=== PATIENT | female | born 2000 | race Caucasian/White ===

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

== ENCOUNTER 2021-02-10 23:15 | Emergency (ER) | payer OTHER ==
[2021-02-10 23:37] VITALS: BP 143/90; PULSE 81; TEMP 98.2
[2021-02-11] MEDS ORDERED: prednisoLONE ORAL SOLUTION 15MG/5ML CUP PO STA (00:08)
[2021-02-11] MEDS ORDERED: diphenhydrAMINE ELIXIR 25 MG/10 ML CUP PO STA (00:09)
--- NOTE | 2021-02-11 00:12 | ED ---
Allergic Reaction HPI - General Chief complaint: Allergic Reaction Stated complaint: Allergic Reaction Time Seen by Provider: 02/10/21 23:46 Source: patient, family Mode of arrival: ambulatory Limitations: no limitations - History of Present Illness Initial Comments: 21 year-old female patient presents to the emergency department for evaluation of various insect bites. States she stayed in a new house last night and woke up with bites over her arms and neck. States the lesions are extremely itchy. She denies any pain or drainage from the areas. She denies any fever or chills. Did take a claritin without relief. Denies any lip, tongue, or throat swelling. - Related Data Home Medications Medication Instructions Recorded Confirmed Lisdexamfetamine Dimesylate 70 mg PO QAM 01/26/15 01/26/15 [Vyvanse] Previous Rx's Medication Instructions Recorded diphenhydrAMINE ELIXIR [Benadryl 25 mg PO Q6H PRN #200 ml 02/11/21 Elixir] prednisoLONE [prednisoLONE Oral 50 mg PO DAILY #50 ml 02/11/21 Soln] Allergies Allergy/AdvReac Type Severity Reaction Status Date / Time No Known Allergies Allergy Verified 02/10/21 23:37 Review of Systems ROS Statement: Those systems with pertinent positive or pertinent negative responses have been documented in the HPI. ROS Other: All systems not noted in ROS Statement are negative. Past Medical History Past Medical History: Hyperlipidemia History of Any Multi-Drug Resistant Organisms: None Reported Past Surgical History: No Surgical Hx Reported Past Psychological History: No Psychological Hx Reported, ADD/ADHD Smoking Status: Current every day smoker Past Alcohol Use History: None Reported Past Drug Use History: None Reported General Exam Limitations: no limitations General appearance: alert, in no apparent distress, other (Physical well- developed, well-nourished adult female patient in no acute distress. ) Eye exam: Present: normal appearance, PERRL, EOMI. Absent: scleral icterus, conjunctival injection, periorbital swelling ENT exam: Present: normal exam, normal oropharynx, mucous membranes moist Respiratory exam: Present: normal lung sounds bilaterally. Absent: respiratory distress, wheezes, rales, rhonchi, stridor Cardiovascular Exam: Present: regular rate, normal rhythm, normal heart sounds. Absent: systolic murmur, diastolic murmur, rubs, gallop, clicks Neurological exam: Present: alert, oriented X3, CN II-XII intact Psychiatric exam: Present: normal affect, normal mood Skin exam: Present: warm, dry, intact, normal color, rash (There are scattered erythematous lesions with mild swelling surrounding erythema consistent with bug bite.) Course Vital Signs 02/10/21 02/11/21 23:31 00:00 Temperature 98.2 F Pulse Rate 81 Respiratory 20 18 Rate Blood Pressure 143/90 O2 Sat by Pulse 99 Oximetry Medical Decision Making - Medical Decision Making 21-year-old female patient presents for evaluation of multiple bug bites over her arms and neck. Physical examination did reveal erythematous lesions consistent with bug bite. She has no lip, tongue, or throat swelling. She was given oral steroid and Benadryl here. She'll be discharged with prescriptions for both. Instructed to follow-up with the primary care physician as needed. Return parameters discussed in detail. She verbalizes understanding and agrees with this plan. My attending is Dr. Land. Disposition Clinical Impression: Bug bites Disposition: HOME SELF-CARE Condition: Good Instructions (If sedation given, give patient instructions): Insect Bite or St ing (ED) Additional Instructions: Take medications as directed. Follow-up with the primary care physician for recheck in 1-2 days. Return for any new, worsening, or concerning symptoms. Prescriptions: diphenhydrAMINE ELIXIR [Benadryl Elixir] 25 mg PO Q6H PRN #200 ml PRN Reason: Itching prednisoLONE [prednisoLONE Oral Soln] 50 mg PO DAILY #50 ml Is patient prescribed a controlled substance at d/c from ED?: No Referrals: Felice Batres DO [Primary Care Provider] - 1-2 days Time of Disposition: 00:12
[2021-02-11 00:25] VITALS: RESP 18
== END 2021-02-11 00:26 | disposition home or self-care (01) ==
LOC: EC 23:15
DX: S10.86XA Insect bite of other specified part of neck, initial encounter (principal); S60.562A Insect bite (nonvenomous) of left hand, initial encounter; S60.561A Insect bite (nonvenomous) of right hand, initial encounter; E78.5 Hyperlipidemia, unspecified; F90.9 Attention-deficit hyperactivity disorder, unspecified type; F17.200 Nicotine dependence, unspecified, uncomplicated; W57.XXXA Bitten or stung by nonvenomous insect and other nonvenomous arthropods, initial encounter
CPT/HCPCS: 99281

== ENCOUNTER 2021-04-21 10:42 | Emergency (ER) | payer OTHER ==
[2021-04-21 11:24] VITALS: RESP 18; TEMP 97
[2021-04-21] MEDS ORDERED: methylPREDNISolone SOD SUCCI 125 MG/2 ML VIAL IM ONE (12:17)
[2021-04-21] MEDS ORDERED: hydrOXYzine HCL 25 MG TAB PO STA (12:17)
[2021-04-21] MEDS ORDERED: diphenhydrAMINE ELIXIR 25 MG/10 ML CUP PO STA (12:20)
--- NOTE | 2021-04-21 12:22 | ED ---
General Adult HPI - General Source: patient, RN notes reviewed Mode of arrival: ambulatory Limitations: no limitations <Jamir Hong - Last Filed: 04/21/21 12:17> <Shauna Murillo - Last Filed: 04/21/21 23:14> - General Chief complaint: Skin/Abscess/Foreign Body Stated complaint: Bed Bugs Time Seen by Provider: 04/21/21 11:27 - History of Present Illness Initial comments: 21-year-old female with a past medical history of hyperlipidemia presents to the emergency room for a chief complaint of rash. Patient states that she feels as if she has bedbug bites. Patient states she used to live with her mother who had bedbugs. States that she would get bitten she would have reactions to the bites that him into welts. Patient states she moved out but spent the night last night at her mom's because she thought they were gone but ended up with welts again.Patient has no other complaints at this time including shortness of breath, chest pain, abdominal pain, nausea or vomiting, headache, or visual changes. (Jamir Hong) - Related Data Home Medications Medication Instructions Recorded Confirmed Lisdexamfetamine Dimesylate 70 mg PO QAM 01/26/15 01/26/15 [Vyvanse] Previous Rx's Medication Instructions Recorded diphenhydrAMINE ELIXIR [Benadryl 25 mg PO Q6H PRN #200 ml 02/11/21 Elixir] prednisoLONE [prednisoLONE Oral 50 mg PO DAILY #50 ml 02/11/21 Soln] diphenhydrAMINE ELIXIR [Benadryl 25 mg PO Q6H PRN #120 ml 04/21/21 Elixir] prednisoLONE ORAL 15MG/5ML DORA 30 mg PO DAILY 4 Days #40 ml 04/21/21 [Prelone] Allergies Allergy/AdvReac Type Severity Reaction Status Date / Time No Known Allergies Allergy Verified 02/10/21 23:37 Review of Systems ROS Other: All systems not noted in ROS Statement are negative. <Jamir Hong - Last Filed: 04/21/21 12:17> ROS Other: All systems not noted in ROS Statement are negative. <Shauna Murillo - Last Filed: 04/21/21 23:14> ROS Statement: Those systems with pertinent positive or pertinent negative responses have been documented in the HPI. Past Medical History Past Medical History: Hyperlipidemia History of Any Multi-Drug Resistant Organisms: None Reported Past Surgical History: No Surgical Hx Reported Past Psychological History: No Psychological Hx Reported Smoking Status: Never smoker Past Alcohol Use History: Rare Past Drug Use History: Marijuana <Jamir Hong - Last Filed: 04/21/21 12:17> General Exam Limitations: no limitations General appearance: alert, in no apparent distress Head exam: Present: atraumatic Eye exam: Present: normal appearance, PERRL, EOMI. Absent: scleral icterus, conjunctival injection ENT exam: Present: normal exam, mucous membranes moist Neck exam: Present: normal inspection, full ROM. Absent: tenderness Respiratory exam: Present: normal lung sounds bilaterally. Absent: respiratory distress, wheezes Cardiovascular Exam: Present: regular rate, normal rhythm, normal heart sounds Skin exam: Present: rash (Patient has multiple raised erythematous plaques on the right upper arm and right side chest. No abscess.) <Jamir Hong - Last Filed: 04/21/21 12:17> Course Vital Signs 04/21/21 04/21/21 11:19 12:46 Temperature 97.0 F L 97.0 F L Pulse Rate 63 71 Respiratory 18 18 Rate Blood Pressure 135/83 136/98 O2 Sat by Pulse 99 96 Oximetry Medical Decision Making <Jamir Hong - Last Filed: 04/21/21 12:17> <Shauna Murillo - Last Filed: 04/21/21 23:14> - Medical Decision Making Patient appears to have reaction to bites. There is no evidence for cellulitis or abscess at this time. Patient will be started on steroid and Benadryl. Requests only liquids as she cannot take pills. She will follow-up with her doctor. She will return here for any worsening symptoms. (Jamir Hong) I was available for consultation in the emergency department. The history and physical exam were done by the midlevel provider. I was consulted for this patients care. I reviewed the case with the midlevel provider and based on their presentation of the patient, I agree with the assessment, medical decision making and plan of care as documented. Chart was dictated using [employer] dictation software. Attempts were made to correct any dictation errors however some typographical errors may persist. Patient was seen during a national state of emergency due to the Covid-19 pandemic. (Shauna Murillo) Disposition Is patient prescribed a controlled substance at d/c from ED?: No Time of Disposition: 12:20 <Jamir Hong - Last Filed: 04/21/21 12:17> <Shauna Murillo - Last Filed: 04/21/21 23:14> Clinical Impression: Rash, Contact dermatitis Disposition: HOME SELF-CARE Condition: Good Instructions (If sedation given, give patient instructions): Urticaria (ED), Acute Rash (ED) Additional Instructions: Take medications as directed. Benadryl may make you drowsy. Follow-up with your doctor. Return to the emergency room for any worsening symptoms such as fevers or spreading redness. Prescriptions: diphenhydrAMINE ELIXIR [Benadryl Elixir] 25 mg PO Q6H PRN #120 ml PRN Reason: Itching prednisoLONE ORAL 15MG/5ML DORA [Prelone] 30 mg PO DAILY 4 Days #40 ml Referrals: Felice Batres DO [Primary Care Provider] - 1-2 days
[2021-04-21 12:48] VITALS: BP 136/98; PULSE 71
== END 2021-04-21 12:46 | disposition home or self-care (01) ==
LOC: EC 10:42
DX: L25.9 Unspecified contact dermatitis, unspecified cause (principal); E78.5 Hyperlipidemia, unspecified; F12.90 Cannabis use, unspecified, uncomplicated
CPT/HCPCS: 99282; 96372; J2930

== ENCOUNTER 2022-04-18 13:11 | Emergency (ER) | payer OTHER ==
--- NOTE | 2022-04-18 14:05 | ED ---
General Adult HPI - General Source: patient, RN notes reviewed Mode of arrival: ambulatory Limitations: no limitations <Ba Bean - Last Filed: 04/18/22 14:03> <Glenda Ayala - Last Filed: 04/18/22 23:27> - General Stated complaint: Abd Pain,Nausea,Headache Time Seen by Provider: 04/18/22 13:52 - History of Present Illness Initial comments: This a 22-year-old female presents emergency Department with chief complaint of abdominal pain, nausea vomiting. Patient states she started having abdominal pain yesterday she states it worsen after she drank alcohol last night. Patient does admit that she continues to have nausea and pain on the right side of her abdomen. Patient states her mental cycle was approximately one month ago but states that she did take a test which was negative yesterday. She has no dysuria no urinary frequency or hematuria noted patient denies any change in bowel habits including melena, hematochezia, constipation. Patient had no prior abdominal surgeries. (Ba Bean) - Related Data Home Medications Medication Instructions Recorded Confirmed No Known Home Medications 04/18/22 04/18/22 Allergies Allergy/AdvReac Type Severity Reaction Status Date / Time No Known Allergies Allergy Verified 04/18/22 20:11 Review of Systems ROS Other: All systems not noted in ROS Statement are negative. <Ba Bean - Last Filed: 04/18/22 14:03> ROS Other: All systems not noted in ROS Statement are negative. <Glenda Ayala - Last Filed: 04/18/22 23:27> ROS Statement: Those systems with pertinent positive or pertinent negative responses have been documented in the HPI. Past Medical History Past Medical History: Hyperlipidemia History of Any Multi-Drug Resistant Organisms: None Reported Past Surgical History: No Surgical Hx Reported Past Psychological History: No Psychological Hx Reported Smoking Status: Never smoker Past Alcohol Use History: Rare Past Drug Use History: Marijuana <Ba Bean - Last Filed: 04/18/22 14:03> Course Vital Signs 04/18/22 04/18/22 14:56 20:59 Temperature 98.5 F Pulse Rate 105 H 98 Respiratory 18 16 Rate Blood Pressure 119/61 126/72 O2 Sat by Pulse 99 98 Oximetry Medical Decision Making - Lab Data Result diagrams: 04/18/22 15:11 04/18/22 15:11 <Glenda Ayala - Last Filed: 04/18/22 23:27> - Medical Decision Making Was pt. sent in by a medical professional or institution? @ Self Did you speak to anyone other than the patient for history? @ -Patient Did you review nursing and triage notes? @ -I reviewed the triage and quick note Were old charts reviewed? @ -NA Differential Diagnosis? @ -Appendicitis, ectopic EKG interpreted by me (3pts min.)? @ -[none] X-rays interpreted by me (1pt min.)? @ -NA CT interpreted by me (1pt min.)? @ -no evidence of acute abdominal process U/S interpreted by me (1pt. min.)? @ -NA What testing was considered but not performed? (CT, X-rays, U/S, labs)? Why? @ NA What meds were considered but not given? Why? @ -Zofran, patient says she cannot take pills orally. Did you discuss the management of the patient with other professionals? @ -I discussed the case with Dr. Trotter who agrees with plan for discharge. Did you reconcile home meds? @ -NA Was smoking cessation discussed for >3mins.? @ -NA Was critical care preformed (if so, how long)? @ -none Were there social determinants of health that impacted care today? How? (Homelessness, low income, unemployed, alcoholism, drug addiction, transportation, low edu. Level, literacy, decrease access to med. care, half-way, rehab)? @ -NA Was there de-escalation of care discussed even if they declined? (Discuss DNR or withdrawal of care, Hospice)? @ -NA What co-morbidities impacted this encounter? (DM, HTN, Smoking, COPD, CAD, Cancer, CVA, Hep., AIDS, mental health diagnosis, sleep apnea, morbid obesity)? @ -NA Was patient admitted / discharged? @ -discharged in stable condition with recommend close follow up with primary care provider Undiagnosed new problem with uncertain prognosis? @ Acute non-specific abdominal pain Drug Therapy requiring intensive monitoring for toxicity (Heparin, Nitro, Insulin, Cardizem)? @ -NA Were any procedures done? @ -NA Diagnosis/symptom? @ Acute non-specific abdominal pain Acute, or Chronic, or Acute on Chronic? @ -Acute Uncomplicated (without systemic symptoms) or Complicated (systemic symptoms)? @ -uncomplicated Side effects of treatment? @ -Na Exacerbation, Progression, or Severe Exacerbation] @ -NA Poses a threat to life or bodily function? @ -low likelihood (Glenda Ayala) - Lab Data Lab Results 04/18/22 04/18/22 04/18/22 Range/Units 15:11 15:11 16:30 WBC 8.4 (3.8-10.6) k/uL RBC 4.86 (3.80-5.40) m/uL Hgb 15.4 (11.4-16.0) gm/dL Hct 44.6 (34.0-46.0) % MCV 91.7 (80.0-100.0) fL MCH 31.6 (25.0-35.0) pg MCHC 34.5 (31.0-37.0) g/dL RDW 11.7 (11.5-15.5) % Plt Count 360 (150-450) k/uL MPV 7.5 Neutrophils % 79 % Lymphocytes % 16 % Monocytes % 3 % Eosinophils % 1 % Basophils % 1 % Neutrophils # 6.7 (1.3-7.7) k/uL Lymphocytes # 1.3 (1.0-4.8) k/uL Monocytes # 0.2 (0-1.0) k/uL Eosinophils # 0.1 (0-0.7) k/uL Basophils # 0.1 (0-0.2) k/uL Sodium 141 (137-145) mmol/L Potassium 4.2 (3.5-5.1) mmol/L Chloride 109 H (98-107) mmol/L Carbon Dioxide 23 (22-30) mmol/L Anion Gap 9 mmol/L BUN 7 (7-17) mg/dL Creatinine 0.62 (0.52-1.04) mg/dL Est GFR (CKD-EPI)AfAm >90 (>60 ml/min/1.73 sqM) Est GFR (CKD-EPI)NonAf >90 (>60 ml/min/1.73 sqM) Glucose 89 (74-99) mg/dL Calcium 10.0 (8.4-10.2) mg/dL Total Bilirubin 1.5 H (0.2-1.3) mg/dL AST 28 (14-36) U/L ALT 30 (4-34) U/L Alkaline Phosphatase 94 (38-126) U/L Total Protein 8.7 H (6.3-8.2) g/dL Albumin 5.0 (3.5-5.0) g/dL Amylase 82 (30-110) U/L Lipase 44 (23-300) U/L Urine Color Yellow Urine Appearance Cloudy H (Clear) Urine pH 6.0 (5.0-8.0) Ur Specific [place] 1.033 (1.001-1.035) Urine Protein 1+ H (Negative) Urine Glucose (UA) Negative (Negative) Urine Ketones 2+ H (Negative) Urine Blood Negative (Negative) Urine Nitrite Negative (Negative) Urine Bilirubin Negative (Negative) Urine Urobilinogen 3.0 (<2.0) mg/dL Ur Leukocyte Esterase Moderate H (Negative) Urine RBC 7 H (0-5) /hpf Urine WBC 7 H (0-5) /hpf Ur Squamous Epith Cells 9 H (0-4) /hpf Urine Bacteria Few H (None) /hpf Urine Mucus Many H (None) /hpf Urine HCG, Qual (Not Detectd) 04/18/22 Range/Units 16:30 WBC (3.8-10.6) k/uL RBC (3.80-5.40) m/uL Hgb (11.4-16.0) gm/dL Hct (34.0-46.0) % MCV (80.0-100.0) fL MCH (25.0-35.0) pg MCHC (31.0-37.0) g/dL RDW (11.5-15.5) % Plt Count (150-450) k/uL MPV Neutrophils % % Lymphocytes % % Monocytes % % Eosinophils % % Basophils % % Neutrophils # (1.3-7.7) k/uL Lymphocytes # (1.0-4.8) k/uL Monocytes # (0-1.0) k/uL Eosinophils # (0-0.7) k/uL Basophils # (0-0.2) k/uL Sodium (137-145) mmol/L Potassium (3.5-5.1) mmol/L Chloride (98-107) mmol/L Carbon Dioxide (22-30) mmol/L Anion Gap mmol/L BUN (7-17) mg/dL Creatinine (0.52-1.04) mg/dL Est GFR (CKD-EPI)AfAm (>60 ml/min/1.73 sqM) Est GFR (CKD-EPI)NonAf (>60 ml/min/1.73 sqM) Glucose (74-99) mg/dL Calcium (8.4-10.2) mg/dL Total Bilirubin (0.2-1.3) mg/dL AST (14-36) U/L ALT (4-34) U/L Alkaline Phosphatase (38-126) U/L Total Protein (6.3-8.2) g/dL Albumin (3.5-5.0) g/dL Amylase (30-110) U/L Lipase (23-300) U/L Urine Color Urine Appearance (Clear) Urine pH (5.0-8.0) Ur Specific [place] (1.001-1.035) Urine Protein (Negative) Urine Glucose (UA) (Negative) Urine Ketones (Negative) Urine Blood (Negative) Urine Nitrite (Negative) Urine Bilirubin (Negative) Urine Urobilinogen (<2.0) mg/dL Ur Leukocyte Esterase (Negative) Urine RBC (0-5) /hpf Urine WBC (0-5) /hpf Ur Squamous Epith Cells (0-4) /hpf Urine Bacteria (None) /hpf Urine Mucus (None) /hpf Urine HCG, Qual Not Detected (Not Detectd) Disposition <Ba Bean - Last Filed: 04/18/22 14:03> Is patient prescribed a controlled substance at d/c from ED?: No Time of Disposition: 20:41 <Glenda Ayala - Last Filed: 04/18/22 23:27> Clinical Impression: Abdominal pain Disposition: HOME SELF-CARE Condition: Stable Instructions (If sedation given, give patient instructions): Abdominal Pain (ED) Additional Instructions: Reason return to the nearest emergency department if symptoms of worsening abdominal pain, diarrhea or fever develops Referrals: None,Stated [Primary Care Provider] - 1-2 days
[2022-04-18 14:58] VITALS: TEMP 98.5
[2022-04-18 15:18] LABS: Basophils # (A) 0.1 k/uL (0-0.2); Basophils % (A) 1 %; Eosinophils # (A) 0.1 k/uL (0-0.7); Eosinophils % (A) 1 %; HCT 44.6 % (34.0-46.0); HGB 15.4 gm/dL (11.4-16.0); Lymphocytes # (A) 1.3 k/uL (1.0-4.8); Lymphocytes % (A) 16 %; MCH 31.6 pg (25.0-35.0); MCHC 34.5 g/dL (31.0-37.0); MCV 91.7 fL (80.0-100.0); Mean Platelet Volume 7.5; Monocytes # (A) 0.2 k/uL (0-1.0); Monocytes % (A) 3 %; Neutrophils # (A) 6.7 k/uL (1.3-7.7); Neutrophils % (A) 79 %; Platelet Count 360 k/uL (150-450); RBC 4.86 m/uL (3.80-5.40); RDW 11.7 % (11.5-15.5); WBC 8.4 k/uL (3.8-10.6)
[2022-04-18 15:27] LABS: ALT 30 U/L (4-34); AST 28 U/L (14-36); African American GFR (CKD) >90 (>60 ml/min/1.73 sqM); Alkaline Phosphatase 94 U/L (38-126); Amylase 82 U/L (30-110); Anion Gap 9 mmol/L; Blood Urea Nitrogen 7 mg/dL (7-17); Carbon Dioxide 23 mmol/L (22-30); Chloride 109 mmol/L (98-107); Glucose 89 mg/dL (74-99); Lipase 44 U/L (23-300); Non-African American GFR(CKD) >90 (>60 ml/min/1.73 sqM); Potassium 4.2 mmol/L (3.5-5.1); Sodium 141 mmol/L (137-145); Total Bilirubin 1.5 mg/dL (0.2-1.3); Total Protein 8.7 g/dL (6.3-8.2)
[2022-04-18 16:47] LABS: Appearance,Urine Cloudy (Clear); Bacteria,Urine Few /hpf; Bilirubin,Urine Negative (Negative); Blood,Urine Negative (Negative); Color,Urine Yellow; Glucose,Urine (UA) Negative (Negative); Ketones,Urine 2+ (Negative); Leukocyte Esterase,Urine Moderate (Negative); Mucus,Urine Many /hpf; Nitrite,Urine Negative (Negative); Protein,Urine 1+ (Negative); RBC,Urine 7 /hpf (0-5); Specific Gravity,Urine 1.033 (1.001-1.035); Squamous Epithelial Cell,Urine 9 /hpf (0-4); WBC,Urine 7 /hpf (0-5)
--- NOTE | 2022-04-18 20:11 | CT ---
EXAMINATION TYPE: CT abdomen pelvis wo con CT DLP: 1093.4 mGycm, Automated exposure control for dose reduction was used. DATE OF EXAM: 04/18/2022 7:56 PM COMPARISON: CT abdomen pelvis most recent from CLINICAL INDICATION:Female, 22 years old with history of RLQ pain; TECHNIQUE: Axial CT of the abdomen and pelvis. Sagittal and coronal reformats were created on a [employer] workstation. Contrast used: None Oral contrast used: without Oral Contrast FINDINGS: LOWER CHEST: Unremarkable ABDOMEN LIVER: Unremarkable GALLBLADDER AND BILE DUCTS: Unremarkable. PANCREAS: Unremarkable. SPLEEN: Unremarkable. ADRENAL GLANDS: Unremarkable. KIDNEYS AND URETERS: No evidence of hydronephrosis or renal calculus. The ureters are unremarkable. PELVIS BLADDER: Unremarkable REPRODUCTIVE: Unremarkable. ABDOMEN & PELVIS STOMACH AND BOWEL: No evidence of bowel obstruction. The appendix is normal. There is scattered submu cosal fat deposition throughout the colon. The left colon is relatively nondistended and the right co cristhian demonstrates moderate stool. PERITONEUM: No evidence of pneumoperitoneum or free fluid. VASCULATURE: No evidence of aortic aneurysm. MUSCULOSKELETAL: No acute osseous abnormalities LYMPH NODES: No gross evidence for lymphadenopathy. SOFT TISSUE/ABDOMINAL WALL: Unremarkable IMPRESSION: 1. No evidence for acute right lower quadrant process. Normal appendix, no evidence of obstructive u ropathy.
[2022-04-18] MEDS ORDERED: ONDANSETRON 4 MG ODT STARTER PACK 2 TAB BTL PO STA (20:35)
[2022-04-18 21:00] VITALS: BP 126/72; PULSE 98; RESP 16
== END 2022-04-18 21:00 | disposition home or self-care (01) ==
LOC: EC 13:11
DX: R10.9 Unspecified abdominal pain (principal); F12.90 Cannabis use, unspecified, uncomplicated
CPT/HCPCS: 36415; 80053; 82150; 83690; 85025; 81001; 81025; 74176; 99284; S0119

== ENCOUNTER 2024-07-21 16:29 | Emergency (ER) | payer OTHER ==
[2024-07-21 16:35] VITALS: RESP 20; TEMP 97.8
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
--- NOTE | 2024-07-21 17:42 | XR ---
EXAMINATION TYPE: XR knee complete RT DATE OF EXAM: 07/21/2024 5:28 PM COMPARISON: None CLINICAL INDICATION: Female, 24 years old with history of right knee injury x 1 week ago; PHH, pain TECHNIQUE: XR knee complete RT 3 views submitted. FINDINGS: No evidence of any acute osseous pathology, soft tissue swelling, or joint effusion is no rian. A fabella is present. IMPRESSION: No acute osseous pathology. [facility], , 07/21/2024 5:40 PM
[2024-07-21 17:59] VITALS: BP 126/73; PULSE 102
== END 2024-07-21 18:02 | disposition home or self-care (01) ==
LOC: EC 16:29
DX: S83.91XA Sprain of unspecified site of right knee, initial encounter (principal); W22.8XXA Striking against or struck by other objects, initial encounter
CPT/HCPCS: 99283